=== PATIENT | male | born 1985 | race Caucasian/White ===

== ENCOUNTER 2018-01-11 08:39 | Emergency (ER) | payer BC, SELFPAY ==
[2018-01-11 08:44] VITALS: BP 124/81; PULSE 69; RESP 16; TEMP 36.4; O2SAT 100
--- NOTE | 2018-01-11 09:30 | DI.RAD_ITS ---
SYMPTOMS/DIAGNOSIS: COUGH, SPUTUM, WHEEZE PA AND LATERAL CHEST: There are no prior comparison exams. The cardiac and mediastinal contours have a normal appearance. The lungs are suboptimally inflated but appear clear. No infiltrate or effusion is seen. IMPRESSION: No acute abnormality.
--- NOTE | 2018-01-11 09:31 | W.ED.GENAD ---
Discharge Plan Disposition Patient Disposition: HOME Condition: Good Discharge Details Chief Complaint: RespSymp Clinical Impression: Acute bronchitis Primary Care Provider: Jyothi Valero ED Provider: Artemio Davis Home Meds and New Rx's Prescriptions: New azithromycin 250 mg tablet See Label Instructions .ROUTE .COMPLEX Qty: 6 RF: 0 Discharge Instructions Instructions: Acute Bronchitis (ED) Additional Instructions: May use albuterol every 4 hours, as needed for cough and wheeze. If you are using greater than every 2 hours, you need to be seen in the emergency room Continue your efforts to decrease smoking Take antibiotics as prescribed. Follow-up with regular doctor if not improved in 5 days time Medical Decision Making MDM Narrative Medical decision making narrative: 32-year-old male presents with days of cough and production of sputum. He is a smoker. He is well appearing and speaking in full sentences without respiratory distress and normal oxygenation. Slight wheeze present on exam. Given albuterol, referred for x-ray to rule out bronchitis versus pneumonia, must exclude mass or pneumothorax. Patient improved following albuterol, I will place him on a course of azithromycin to cover atypical micro organisms. He will be prescribed albuterol to use as needed HPI - General Adult General Date/Time Provider Initiated Documentation: 01/11/18 09:05. Limitations to Documentation: no limitations. Information obtained by: patient and family. HPI Narrative: Cough: 32-year-old male presents with gradual onset of cough over days time. This is moderate, constant, associated with production of yellow sputum. He said mild malaise and sore throat. He has not had nausea, vomiting, diarrhea. There is no exacerbating or ameliorating Related Data Previous Rx's Medication Instructions Recorded azithromycin See Label Instructions .ROUTE 01/11/18 .COMPLEX #6 tab Allergies Allergy/AdvReac Type Severity Reaction Status Date / Time No Known Allergies Allergy Unverified 03/19/17 13:26 General Stated Complaint: RespSymp ERIC: 4 Review of Systems Review of Systems 6 systems reviewed, otherwise negative [facility] Social History Smoking/Tobacco Use Status: Current every day Surgical History Distal biceps repair (06/14/16) Exam Const General: cooperative, healthy appearing, comfortable and no acute distress HENMT Head: normal to inspection, normocephalic and atraumatic Face and sinus: sinuses nontender Mouth: oral mucosae normal and moist mucous membranes Neck Neck: normal visual inspection and no meningeal signs Chest Chest: normal inspection of the chest and normal palpation of entire chest wall Resp Effort & Inspection: normal respiratory effort, able to speak in complete sentences, cough and other (Wheezing noted at end expiratory and with cough) Cardio Rate: regular rate Rhythm: regular rhythm Neuro General: alert, awake and oriented x3 Extrem General: normal to inspection Right upper extremity: normal to inspection Left upper extremity: normal to inspection Psych Appearance: grossly normal and well kempt Course Vital Signs Temperature 36.4 C L 01/11/18 08:44 Pulse 69 01/11/18 08:44 Respiratory Rate 16 01/11/18 08:44 Blood Pressure 124/81 01/11/18 08:44 Pulse Oximetry 100 01/11/18 08:44 Temperature 36.4 C L 01/11/18 08:44 Pulse 69 01/11/18 08:44 Respiratory Rate 16 01/11/18 08:44 Blood Pressure 124/81 01/11/18 08:44 Pulse Oximetry 100 01/11/18 08:44
--- NOTE | 2018-01-11 09:35 | ED.GENADUL_ITS ---
Discharge Plan Disposition Patient Disposition: HOME Condition: Good Discharge Details Chief Complaint: RespSymp Clinical Impression: Acute bronchitis Primary Care Provider: Jyothi Valero ED Provider: Artemio Davis Home Meds and New Rx's Prescriptions: New azithromycin 250 mg tablet See Label Instructions .ROUTE .COMPLEX Qty: 6 RF: 0 Discharge Instructions Instructions: Acute Bronchitis (ED) Additional Instructions: May use albuterol every 4 hours, as needed for cough and wheeze. If you are using greater than every 2 hours, you need to be seen in the emergency room Continue your efforts to decrease smoking Take antibiotics as prescribed. Follow-up with regular doctor if not improved in 5 days time Medical Decision Making MDM Narrative Medical decision making narrative: 32-year-old male presents with days of cough and production of sputum. He is a smoker. He is well appearing and speaking in full sentences without respiratory distress and normal oxygenation. Slight wheeze present on exam. Given albuterol, referred for x-ray to rule out bronchitis versus pneumonia, must exclude mass or pneumothorax. Patient improved following albuterol, I will place him on a course of azithromycin to cover atypical micro organisms. He will be prescribed albuterol to use as needed HPI - General Adult General Date/Time Provider Initiated Documentation: 01/11/18 09:05 . Limitations to Documentation: no limitations . Information obtained by: patient and family . HPI Narrative: Cough: 32-year-old male presents with gradual onset of cough over days time. This is moderate, constant, associated with production of yellow sputum. He said mild malaise and sore throat. He has not had nausea, vomiting, diarrhea. There is no exacerbating or ameliorating Related Data Previous Rx's Medication Instructions Recorded azithromycin See Label Instructions .ROUTE 01/11/18 .COMPLEX #6 tab Allergies Allergy/AdvReac Type Severity Reaction Status Date / Time No Known Allergies Allergy Unverified 03/19/17 13:26 General Stated Complaint: RespSymp ERIC: 4 Review of Systems Review of Systems 6 systems reviewed, otherwise negative [facility] Social History Smoking/Tobacco Use Status: Current every day Surgical History Distal biceps repair (06/14/16) Exam Const General: cooperative, healthy appearing, comfortable and no acute distress HENMT Head: normal to inspection, normocephalic and atraumatic Face and sinus: sinuses nontender Mouth: oral mucosae normal and moist mucous membranes Neck Neck: normal visual inspection and no meningeal signs Chest Chest: normal inspection of the chest and normal palpation of entire chest wall Resp Effort & Inspection: normal respiratory effort, able to speak in complete sentences, cough and other (Wheezing noted at end expiratory and with cough) Cardio Rate: regular rate Rhythm: regular rhythm Neuro General: alert, awake and oriented x3 Extrem General: normal to inspection Right upper extremity: normal to inspection Left upper extremity: normal to inspection Psych Appearance: grossly normal and well kempt Course Vital Signs Temperature 36.4 C L 01/11/18 08:44 Pulse 69 01/11/18 08:44 Respiratory Rate 16 01/11/18 08:44 Blood Pressure 124/81 01/11/18 08:44 Pulse Oximetry 100 01/11/18 08:44 Temperature 36.4 C L 01/11/18 08:44 Pulse 69 01/11/18 08:44 Respiratory Rate 16 01/11/18 08:44 Blood Pressure 124/81 01/11/18 08:44 Pulse Oximetry 100 01/11/18 08:44
[2018-01-11] MEDS: Albuterol HFA 8 GM 60 PUFF INH IH (09:59)
== END 2018-01-11 10:35 | disposition home or self-care (01) ==
PROVIDERS: Emergency Provider Emergency Medicine
DX: J20.9 Acute bronchitis, unspecified (principal); F17.210 Nicotine dependence, cigarettes, uncomplicated
CPT/HCPCS: 99284; 71046; 99283

== ENCOUNTER 2020-10-04 17:11 | Emergency (ER) | payer BC, SELFPAY ==
[2020-10-04 17:15] VITALS: BP 138/98; PULSE 82; RESP 16; TEMP 36.5; O2SAT 99
--- NOTE | 2020-10-04 17:24 | W.ED.GENAD ---
Discharge Plan Disposition Patient Disposition: HOME Condition: Stable Discharge Details Clinical Impression: Eye foreign body, Corneal abrasion, left Primary Care Provider: Jyothi Valero ED Provider: Erma Ashford Home Meds and New Rx's Prescriptions: No Action No Known Home Meds RF: 0 Discharge Instructions Instructions: Corneal Abrasion (ED), Eye Foreign Body (ED) Additional Instructions: Apply 1/2 inch ribbon of the erythromycin ointment to your left eye 4 times daily for 7 days. Alternate tylenol and motrin as needed and directed for pain. Call [facility] tomorrow to schedule a follow-up appointment for reevaluation this week. Return immediately to the emergency department if you develop any worsening or new concerning symptoms. Stand Alone Forms: Work Release Referrals: [facility] [Outside] Discharge Data Discharge Physician: Erma Ashford Medical Decision Making 35-year-old male with foreign body sensation and left eye irritation after woodworking at home this morning. Tetanus up-to-date. There is a 1-2mm brown speck noted between 4 and 5:00 on the outer edge of the cornea of the left eye. 2 drops of tetracaine applied to the left eye and foreign body removed with cotton swab. There is a 1 to 2 mm corneal abrasion with fluorescein uptake noted at the site of the foreign body. Slit lamp examination noted what appears to be a brown stain at the site of the foreign body but there does not appear to be any remaining foreign body. Remainder of eye appears normal to inspection. No other foreign body noted with eyelid eversion. 1/2 inch ribbon of erythromycin ointment applied to left eye. Patient was placed on follow-up list for [facility]. Usual and customary return precautions given prior to discharge. Medical Records Medical records reviewed: Yes I reviewed the patient's medical records. HPI General Mode of arrival: ambulatory. Date/Time Provider Initiated Documentation: 10/04/20 17:13. Limitations to Documentation: no limitations. Information obtained by: patient. HPI Narrative: Patient is a 35-year-old male who presents with left eye irritation and foreign body sensation since woodworking at home today. Patient states he was wearing protective glasses while he was woodworking when he felt something land on his eyebrow and then he rubbed his eye and then had irritation with foreign body sensation. He states he flushed his eye but still feels irritation. He had been some blurry vision. He does not wear contacts. Related Data Home Medications Medication Instructions Recorded Confirmed Unknown [No Known Home Meds] 10/04/20 10/04/20 Allergies Allergy/AdvReac Type Severity Reaction Status Date / Time No Known Allergies Allergy Verified 10/04/20 17:17 General Stated Complaint: EyeProblem ERIC: 4 Review of Systems All systems reviewed & are unremarkable except as noted in HPI and below Constitutional Constitutional: Reports as per HPI, Denies chills and Denies fever(s) Eyes Eyes: Reports blurry vision and Reports irritation ENT Ears, Nose, Mouth, and Throat: Denies dizziness, Denies sore throat and Denies throat swelling Cardiovascular Cardiovascular: Denies chest pain and Denies dyspnea Respiratory Respiratory: Denies cough and Denies dyspnea Gastrointestinal Gastrointestinal: Denies abdominal pain, Denies diarrhea and Denies vomiting Genitourinary Genitourinary: Denies hematuria and Denies dysuria Musculoskeletal Musculoskeletal: Denies back pain and Denies numbness Integumentary/Breasts Skin/Breast: Denies lesions and Denies rash Neurologic Neurologic: Denies dizziness, Denies localized weakness and Denies numbness Allergic/Immunologic Allergic/Immunologic: Denies throat swelling [facility] Medical History (Updated 10/04/20 @ 18:02 by Erma Ashford DO) No significant past medical history Surgical History (Updated 07/07/16 @ 08:16 by Roxane Huffman) Distal biceps repair (06/14/16) [facility] Social History Smoking/Tobacco Use Status: Current every day Tobacco Type: cigarettes and smokeless tobacco Smoking risk assessment performed?: Yes Alcohol Intake: current Alcohol Intake frequency: holidays/special occasions only Alcohol type: beer Drug use: Never Substance use type: does not use Do you feel safe at home: Yes Do you feel safe in your relationship?: Yes Exam Const General: cooperative, healthy appearing and no acute distress [facility] Head: normal to inspection Mouth: oral mucosae normal Eyes General: appearance normal, both eyes and all related structures Periorbital: periorbital findings normal Eyelids: eyelids normal Pupils: PERRL EOM: EOM intact bilaterally Eyes/upper lids images: 1. 1-2mm brown speck noted between 4 and 5:00 at the edge of the cornea of the left eye. After removal of foreign body with cotton swab, 1 mm corneal abrasion noted with fluorescein uptake using Rodas lamp. Slit lamp examination noted 1 to 2 mm area of brown stain at site of previous foreign body. Do not see obvious foreign body remaining. Neck Neck: normal visual inspection Resp Effort & Inspection: normal respiratory effort and able to speak in complete sentences Cardio Rate: regular rate Skin General skin exam: no rashes or lesions noted Neuro General: patient alert, patient awake and patient oriented x3 Motor: muscle tone normal throughout Extrem General: normal to inspection and full ROM Psych Appearance: grossly normal Affect: normal affect Course Vital Signs Vital signs: Vital Signs Temperature 97.7 F 10/04/20 17:15 Pulse 82 10/04/20 17:15 Respiratory Rate 16 10/04/20 17:15 Blood Pressure 138/98 H 10/04/20 17:15 Pulse Oximetry 99 10/04/20 17:15 Temperature 97.7 F 10/04/20 17:15 Temperature Source Skin 10/04/20 17:15 Pulse 82 10/04/20 17:15 Respiratory Rate 16 10/04/20 17:15 Respiratory Effort Non-Labored 10/04/20 17:17 Blood Pressure 138/98 H 10/04/20 17:15 Blood Pressure Position Sitting 10/04/20 17:15 Pulse Oximetry 99 10/04/20 17:15 Oxygen Delivery Method Room Air 10/04/20 17:15 Oxygen Flow Rate 0 10/04/20 17:15 Pain Level 1 10/04/20 17:15
[2020-10-04] MEDS: Balanced Salt Solution 15 ML BTL (17:56)
[2020-10-04] MEDS: Erythromycin Ophth Oint 3.5 GM TUBE (17:57)
[2020-10-04] MEDS: Fluorescein STRIPS 100/BOX 1 MG (17:57)
[2020-10-04] MEDS: Tetracaine 0.5% 4 ML BTL (17:57)
--- NOTE | 2020-10-04 18:03 | NUR.NOTE ---
Nursing Note: faxed referral to anneliese
== END 2020-10-04 18:03 | disposition home or self-care (01) ==
PROVIDERS: Emergency Provider Physician Assistant
DX: T15.02XA Foreign body in cornea, left eye, initial encounter (principal); X58.XXXA Exposure to other specified factors, initial encounter
CPT/HCPCS: 99283

== ENCOUNTER 2021-04-15 13:26 | Outpatient (REF) | payer BC, SELFPAY ==
[2021-04-17 11:52] LABS: COVID-19 RT-PCR UVMMC Result Negative (Negative)
== END 2021-04-15 13:27 | disposition home or self-care (01) ==
LOC: LBN 13:26
PROVIDERS: Visit Provider Nurse Practitioner Family
DX: R50.9 Fever, unspecified (principal); Z20.822 Contact with and (suspected) exposure to COVID-19
CPT/HCPCS: U0003

== ENCOUNTER 2023-12-08 19:33 | Emergency (ER) | payer OTHER, SELFPAY ==
[2023-12-08 19:35] VITALS: BP 146/94; PULSE 79; RESP 14; TEMP 36.6; O2SAT 98
--- NOTE | 2023-12-08 21:00 | W.ED.GENAD ---
Discharge Plan Disposition Patient Disposition: Home Condition: Good Discharge Details Clinical Impression: Pain, dental, Left facial swelling Primary Care Provider: CLIFF AGUILLON ED Provider: Ambar Knutson Home Meds and New Rx's Prescriptions: New amoxicillin-pot clavulanate 875-125 mg tablet 1 tab PO Q12H Qty: 12 0RF Continued ibuprofen [Advil] 200 mg tablet 600 mg PO ONCE PRN acetaminophen [Tylenol] 325 mg tablet 1,000 mg PO ONCE PRN Discharge Instructions Instructions: Dental Pain ED Additional Instructions: Augment twice a day for the next 7 days. Tylenol and ibuprofen over the counter; follow the directions on the bottle. Oxycodone up to twice a day as needed for severe pain. See your dentist on Sunday. Return to the emergency department for new or worsening symptoms including fever, new/different/worse pain, worsening swelling, inability to open your mouth, or if you have any other concerns. Referrals: CLIFF AGUILLON, EXECUTIVE DIRECTOR OF NURSING [Primary Care Provider] - HPI General Mode of arrival: ambulatory. Date/Time Provider Initiated Documentation: 12/08/23 19:42. Limitations to Documentation: no limitations. Information obtained by: patient. HPI Narrative: 38yo previously healthy male presenting with left sided facial swelling and dental pain. Left lower molars have been painful for about a week, swelling started yesterday into today. Sensation of ear fullness over the same period of time. Pain starts in his lower teeth and radiates up to his cheek and ear. Pain unrelieved by home tylenol and ibuprofen. Worse with chewing. No difficulty swallowing. Has a dental appointment scheduled for Sunday (2 days from now). Otherwise in his usual state of health with no fevers, chills, nausea, vomiting, or other concerns. Related Data Home Medications ?Medication ?Instructions ?Recorded ?Confirmed acetaminophen 325 mg tablet 1,000 mg PO ONCE PRN 12/08/23 12/08/23 (Tylenol) amoxicillin 875 mg-potassium 1 tab PO Q12H #12 tabs 12/08/23 clavulanate 125 mg tablet ibuprofen 200 mg tablet (Advil) 600 mg PO ONCE PRN 12/08/23 12/08/23 Previous Rx's ?Medication ?Instructions ?Recorded amoxicillin 875 mg-potassium 1 tab PO Q12H #12 tabs 12/08/23 clavulanate 125 mg tablet Allergies Allergy/AdvReac Type Severity Reaction Status Date / Time No Known Allergies Allergy Verified 12/08/23 19:38 General Stated Complaint: DentalOral ERIC: 4 Review of Systems Narrative: see HPI Exam Narrative Exam Narrative: General: Alert, well appearing, well nourished, in no acute distress. Head: Normocephalic, atraumatic Neck: Trachea midline, ?Neck supple. ENT: ?MMM.? No oropharygeal lesions or exudate. Multiple carious teeth. No clear periapical abscess. Left mandibular molars tender to percussion. TM's clear bilaterally. Cardiac: ?RRR, no murmurs appreciated Resp: No respiratory distress. CTAB. Abd: ?Non-distended,. Extremities: ?No deformities.? No peripheral edema. Neurologic: GCS 15. ? Moves all extremities freely against gravity Course Vital Signs Vital signs: Vital Signs Temperature 36.6 C 12/08/23 19:35 Pulse 79 12/08/23 19:35 Respiratory Rate 14 12/08/23 19:35 Blood Pressure 146/94 H 12/08/23 19:35 Pulse Oximetry 98 12/08/23 19:35 Temperature 36.6 C 12/08/23 19:35 Temperature Source Oral 12/08/23 19:35 Pulse 79 12/08/23 19:35 Respiratory Rate 14 12/08/23 19:35 Blood Pressure 146/94 H 12/08/23 19:35 Blood Pressure Position Sitting 12/08/23 19:35 Pulse Oximetry 98 12/08/23 19:35 Oxygen Delivery Method Room Air 12/08/23 19:35 Oxygen Flow Rate 0 12/08/23 19:35 Pain Level 9 12/08/23 19:35 Medical Decision Making 38yo previously healthy male presenting with left sided facial swelling and dental pain. Left lower molars have been painful for about a week, swelling started yesterday into today. Has a dental appointment scheduled for Sunday (2 days from now). Systemically well. Vital signs reassuring on arrival, on exam he has left sided facial swelling and tenderness over cheek and zyomatic arch, multiple carious teeth, no clear apical or periapical abscess. No trismus. No mastoid tenderness to suggest mastoiditis. No evident buccal abscess. Not septic. Not concerning for Ludwigs, deep space infection of neck. Would not get labs or imaging. Will treat for odontogenic infection with augmentin, advised followup with dentist within 48 hours as previously scheduled. Toradol in the ED and short course of oxycodone given. Discharged home; discharge instructions and return precautions were reviewed with patient who verbalized understanding. All questions were answered and he is in full agreement with the plan. Quality:SDOH Health Related Social Needs: No Data to Display PFSH All Active Problems (Updated 12/08/23 @ 21:13 by Ambar Knutson MD) Left facial swelling (Acute) Pain, dental (Acute) Paresthesia of both hands (Acute) Numbness of arm (Acute) Corneal abrasion, left (Acute) Eye foreign body (Acute) Tobacco dependence (Acute) Cough due to bronchospasm (Acute) Medical History No significant past medical history Surgical History Distal biceps repair (06/14/16) [facility] Social History Smoking/Tobacco Use Status: Current every day Tobacco Type: cigarettes and smokeless tobacco Smoking risk assessment performed?: Yes Alcohol Intake: current Alcohol Intake frequency: holidays/special occasions only Alcohol type: beer Drug use: Never Substance use type: does not use Do you feel safe at home: Yes Do you feel safe in your relationship?: Yes
[2023-12-08] MEDS: Amoxicillin 875/Clav. 125 TAB PO (21:17)
[2023-12-08] MEDS: Ketorolac 15 MG/ML VIAL IM (21:17)
[2023-12-08 21:20] VITALS: BP 146/94; PULSE 79; RESP 14; TEMP 36.6; O2SAT 98
[2023-12-08] MEDS: Amox. 875/Clav. 125, 2 TABS/BTL 1 TAB PO (21:24)
[2023-12-08 21:28] VITALS: BP 146/94; PULSE 79; RESP 14; TEMP 36.6; O2SAT 98
== END 2023-12-08 21:28 | disposition home or self-care (01) ==
PROVIDERS: Emergency Provider Student in an Organized Health Care Education/Training Program; PCP Nurse Practitioner Family
DX: R68.84 Jaw pain (principal); R22.0 Localized swelling, mass and lump, head; K08.89 Other specified disorders of teeth and supporting structures
CPT/HCPCS: 96372; 99284; 99283; J1885